=== PATIENT | female | born 2000 | race Caucasian/White ===

== ENCOUNTER 2019-10-19 19:26 | Emergency (ER) | payer OTHER, MEDICAID ==
[2019-10-19] MEDS ORDERED: Acetaminophen 325 MG Tab PO ONE (19:45)
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
--- NOTE | 2019-10-20 07:37 | CR ---
Cervical spine: AP, lateral and odontoid views of the cervical spine were obtained. Comparison: No prior cervical spine imaging. Vertebral body heights and disc spaces are maintained. Prevertebral soft tissues are normal. No subluxation or fracture is appreciated. Impression: 1. Nothing acute is seen on 3 view cervical spine exam. Diagnostic code #1 This report was dictated in MDT
== END 2019-10-19 20:42 | disposition home or self-care (01) ==
LOC: JD.ED 19:26
DX: S16.1XXA Strain of muscle, fascia and tendon at neck level, initial encounter (principal); F17.210 Nicotine dependence, cigarettes, uncomplicated; Z88.8 Allergy status to other drugs, medicaments and biological substances; Z88.0 Allergy status to penicillin; V59.50XA Passenger in pick-up truck or van injured in collision with unspecified motor vehicles in traffic accident, initial encounter
CPT/HCPCS: 72040; 99284; A9270; 99282